=== PATIENT | female | born 2000 | race Caucasian/White ===

== ENCOUNTER 2021-09-20 17:59 | Emergency (ER) | payer OTHER, SELFPAY ==
[2021-09-20 18:12] VITALS: BP 113/73; PULSE 120; RESP 10; O2SAT 89; BMI 20.3
--- NOTE | 2021-09-20 18:15 | ED_ITS ---
HPI - Overdose General Chief Complaint: Overdose Stated Complaint: ?OD Time Seen by Provider: 09/20/21 18:15 Source: patient and family Mode of arrival: ambulatory Limitations: no limitations History of Present Illness HPI Narrative: used crack all day and smoked 2 bags of heroin prior to arrival. lost her bed at [facility] today after not making her entry time because she bailed to use. complaint: other (heroin use and smoking crack all day) Onset (ago): minute(s) (45) Timing confirmed by: family member Context: Accidental Overdose: wanted to get high Associated symptoms: other (sleepy) Treatments Prior to Arrival: none Related Data Allergies Allergy/AdvReac Type Severity Reaction Status Date / Time Penicillins [PCN] Allergy Unknown UNKNOWN Unverified 12/29/19 17:04 Review of Systems Review of Systems: Constitutional : No Fever, No Chills ENT/Mouth : No Ear Pain, No Nasal Congestion, No sore throat Eyes: No Eye Pain, No Swelling, No Redness Cardiovascular : No Chest Pain, No SOB Respiratory : No Cough, No Sputum, No Dyspnea Gastrointestinal : No Nausea, No Vomiting, No Diarrhea, No Hematochezia, No Melena Genitourinary : No Dysuria, No Urinary Frequency, No Hematuria Musculoskeletal : No Myalgias Skin : No Skin Lesions, No rash Neuro : No Weakness, No Numbness, No Dizziness, No Headache Psych : no Anxiety, no Depression, no SI/HI Heme/Lymph: No Lymphadenopathy Endocrine : No Polyuria, No Polydipsia All other systems reviewed and are negative [facility] Past Medical History Attestation statement: The following information was validated with the patient. Medical History Hepatitis C Opiate abuse, continuous Social History Social History (Updated 09/20/21 @ 18:25 by Maria C Dillard DO) Alcohol intake: current Patient Tobacco Use Status: Current everyday Tobacco user Substance Use Type: Crack/Cocaine, Heroin and Marijuana Advance Directives: No Physical Exam Vital Signs: Vital Signs: Last Vital Signs Pulse 120 H 09/20/21 18:12 Resp 10 L 09/20/21 18:12 BP 113/73 09/20/21 18:12 Pulse Ox 89 L 09/20/21 18:12 O2 Del Method 09/20/21 18:12 BMI result Body Mass Index 20.3 Appearance: Somnolent but easily woken to voice. Oriented X3. No acute distress. Eyes: pinpoint pupils ENT: Pharynx normal. Neck: Normal inspection. Neck supple. CVS: tachycardic heart rate and rhythm. Pulses normal. Respiratory: No respiratory distress. Breath sounds normal. Improved to 97% 2L NC Abdomen: Soft and non-tender. Skin: Skin warm and dry. Normal skin color. Normal skin turgor. Extremities: No lower extremity edema. Neuro: Oriented X 3. No motor deficit. No sensory deficit. Course Course Course Narrative: Physician observation started at 732pm. Patient placed in physician observation because the patient needed more time for placement at detox per CARE team. [facility] likely has bed in AM. At the time observation was started the patient's vitals were stable, patient is alert and oriented but slightly somnolent O2 sats improved, Neuro: nonfocal, CV RRR, Lungs clear Physician observation ended at 906pm. Patient does not want to wait in ED for detox bed in AM - VS stable, no hypoxia no need for narcan she is 21 years old and refuses to stay in ED will order narcan to go home with no SI, plans to go to [facility] in AM. NAD, lungs clear, CV RRR, Abd nontender, Neuro intact. Disposition is for home. MDM - Overdose MDM Narrative Medical decision making narrative: 21 yo female with hx of opiate abuse and Hep C (no treatment yet) was going to go to [facility] today but used prior to entry and patient was too sedated for detox - she is requiring 2L NC at this time after 2 bags of heroin. Will observe and refer to recovery coaches. Lab Data Labs: Lab Results 09/20/21 Range/Units 19:06 COVID-19 (GENO) Negative (Negative) COVID-19 Clin Com See Note Discharge Plan Discharge Clinical Impression: Opiate abuse, continuous Patient Disposition: Home, Self-Care Instructions: Polysubstance Abuse (ED), Opioid Withdrawal (ED), Narcotic Withdrawal (ED), Narcotic Use Disorder (ED), Opioid Use Disorder (ED) Additional Instructions: return to ED for any worsening symptoms or concerns please go to [facility] in AM
--- NOTE | 2021-09-20 18:41 | MHC.RECOVSUP ---
? Reason for consult Recovery Support o Current location: ED06H o Identified substance use concern: Heroin - Overdose - Seeking ATS (detox) - Support ? Intervention: o Community resources provided o Harm reduction discussion ? Plan: o Patient to follow up with [facility] after discharge ? Additional information: Patient Had a bed @ [facility] at 2pm which she missed.. I called [facility] and they stated that she did have a bed but didnt show up.. and that at the moment there are no female bed.. but to call in the morning if she held over night..
[2021-09-20 19:28] LABS: COVID-19 Test Negative (Negative)
--- NOTE | 2021-09-20 19:37 | MHC.CARE ---
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 Plan is for pt to stay in the ED overnight and go to [facility] in the morning for detox.
[2021-09-20 21:09] VITALS: PULSE 92; RESP 18; O2SAT 99
[2021-09-20] MEDS: Naloxone HCl Nasal TAKE HOME 4 MG SPRAY NOSTRILALT (21:14)
== END 2021-09-20 21:13 | disposition home or self-care (01) ==
PROVIDERS: Emergency Provider Emergency Medicine
DX: F11.10 Opioid abuse, uncomplicated (principal); B19.20 Unspecified viral hepatitis C without hepatic coma; Z88.0 Allergy status to penicillin; Z20.822 Contact with and (suspected) exposure to COVID-19
CPT/HCPCS: 87635; 99282; 99283

== ENCOUNTER 2023-04-01 14:38 | Outpatient (AMB) | payer OTHER, SELFPAY ==
--- NOTE | 2023-04-01 14:41 | A.OFFVIS_ITS ---
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: No Allergies Penicillins [PCN] Allergy (Unknown, Unverified 04/01/23 14:50) UNKNOWN Do you need a note to return to daycare/school/sports/work: No HPI MAT Intake HPI Details Patient presents for intake and evaluation of opioid use long history of substance use and treatment (despite patient being 23 years old) Previously prescribed suboxone--last rx September 2022 Currently using 5 bags IN daily Few weeks ago was smoking cocaine as well --is not currently Started using about 2 months ago--prior to that in recovery for about a year Reports several lifetime overdoses Alcohol use disorder Currently on probation (February 06 arrested) Treatment History: -ATS at 15 for ETOH -Age 17 ATS for opiates -3 months ago ETOH [facility] Social History: -lives with her grandmother who she repo rts is supportive -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 -strong family history of addiction Health History: -hep c cleared -nexplanon implant -no children -no BH history Multivitamin and fiber only things she takes daily [facility] Medical History Hepatitis C Opiate abuse, continuous Social History (Updated 09/20/21 @ 18:25 by Kristy Dillard DO) Alcohol intake: current Patient Tobacco Use Status: Current everyday Tobacco user Substance Use Type: Crack/Cocaine, Heroin and Marijuana Review of Systems Const Reports as per HPI and Reports no additional complaints Physical Exam Vital Signs: Last Vital Signs Pulse 95 04/01/23 14:47 BP 110/78 04/01/23 14:47 Pulse Ox 96 04/01/23 14:47 Oxygen Delivery Method Room Air 04/01/23 14:47 Const General: cooperative, alert and awake Nutritional Appearance: thin Orientation/consciousness: patient oriented x3 Skin General skin exam: no rashes or lesions noted Neuro General: patient oriented x3 Psych Appearance: well kempt Speech and movement: Clear speech present Affect: normal affect Attitude: cooperative Thought process: Circumstantial thought process present Thought content: Normal thought content present Insight: Fair insight present (Psych) Judgement: Fair judgement present (Psych) Results AMB 14 Panel Urine Drug Screen Urine Marijuana (THC) Negative Last Edit by Susana Turcios CMA on 04/01/23 15:38 Urine Cocaine Positive Last Edit by Susana Turcios CMA on 04/01/23 15:38 Urine Morphine Positive Last Edit by Susana Turcios CMA on 04/01/23 15:38 Urine Methamphetamine Negative Last Edit by Susana Turcios CMA on 04/01/23 15:38 Urine Amphetamine Negative Last Edit by Susana Turcios CMA on 04/01/23 15:3 8 Urine Benzodiazepine Negative Last Edit by Susana Turcios CMA on 04/01/23 15:38 Urine Barbiturates Negative Last Edit by Susana Turcios CMA on 04/01/23 15: 38 Urine Methadone Negative Last Edit by Susana Turcios CMA on 04/01/23 15:38 Urine Buprenorphine Negative Last Edit by Susana Turcios CMA on 04/01/23 15 :38 Urine Tricyclic Antidepressant Negative Last Edit by Susana Turcios CMA on 04/01/23 15:38 Urine MDMA Negative Last Edit by Susana Turcios CMA on 04/01/23 15:38 Urine Oxycodone Negative Last Edit by Susana Turcios CMA on 04/01/23 15:38 Urine Phencyclidine Negative Last Edit by Susana Turcios CMA on 04/01/23 15 :38 Urine Propoxyphene Negative Last Edit by Susana Turcios CMA on 04/01/23 15: 38 Results Reviewed Results Reviewed: Laboratory Last Values POC Urine Buprenorphine Negative 04/01/23 15:34 POC Urine Morphine Positive 04/01/23 15:34 POC Urine Oxycodone Negative 04/01/23 15:34 POC Urine Methadone Negative 04/01/23 15:34 POC Urine Propoxyphene Negative 04/01/23 15:34 POC Urine Barbiturates Negative 04/01/23 15:34 POC U Tricyclic Antidpr Negative 04/01/23 15:34 POC Urine PCP Negative 04/01/23 15:34 POC Ur Amphetamines Negative 04/01/23 15:34 POC Ur Methamphetamine Negative 04/01/23 15:34 POC Urine MDMA Negative 04/01/23 15:34 POC Ur Benzodiazepine Negative 04/01/23 15:34 POC Urine Cocaine Positive 04/01/23 15:34 POC Ur Marijuana (THC) Negative 04/01/23 15:34 Assessment & Plan Assessment & Plan (1) Opioid use disorder, severe, dependence: Code(s): F11.20 - Opioid dependence, uncomplicated Plan: * Suboxone 12mg BID--patient familiar with how to start medication * overdose prevention discussion--patient very knowledgeable and actually informs ppl, including her grandmother, when she is going to use so they can check on her * does not need additional narcan at this time (2) Alcohol use disorder, severe, dependence: Code(s): F10.20 - Alcohol dependence, uncomplicated Plan: * risk reduction discussion Orders: Orders AMB 14 Panel Urine Drug Screen 04/01/23 Z51.81 - Encounter for therapeutic drug level monitoring Medications: New 2 buprenorphine-naloxone 12-3 mg (Suboxone) 1 film sublingual BID 30 ea 0RF Coding Level of Care Code New Pt Level 4 (92354) Diagnoses Opioid use disorder, severe, dependence F11.20 Alcohol use disorder, severe, dependence F10.20
[2023-04-01 14:47] VITALS: BP 110/78; PULSE 95; O2SAT 96
== END 2023-04-01 15:34 | disposition home or self-care (01) ==
PROVIDERS: Visit Provider Nurse Practitioner Psychiatric/Mental Health
DX: F11.20 Opioid dependence, uncomplicated (principal); F10.20 Alcohol dependence, uncomplicated
CPT/HCPCS: 99204

== ENCOUNTER → 2023-04-01 14:38 | Outpatient (BNVA) | payer OTHER, SELFPAY | PROVIDERS: Visit Provider Nurse Practitioner Psychiatric/Mental Health | DX: F11.20 Opioid dependence, uncomplicated (principal); F10.20 Alcohol dependence, uncomplicated | CPT/HCPCS: 80305; 99202 ==

== ENCOUNTER 2023-05-14 11:25 | Outpatient (AMB) | payer OTHER, SELFPAY ==
--- NOTE | 2023-05-14 11:28 | A.OFFVISCC_ITS ---
Intake Intake Visit Reasons: MAT Allergies Penicillins [PCN] Allergy (Unknown, Unverified 04/01/23 14:50) UNKNOWN HPI MAT HPI Details Patient presents for MAT follow up She was last seen in March and re-started on suboxone She reports she was still using at the time and found the transition difficult She reports she is having to use more and more and is up to 1 bundle daily - IN She reportsd nodding out at her job ([employer]) the other day and is scared to lose her job She also does cocaine on occasion, last use a few days ago She would like to restart her suboxone She is requesting test at this time due to missed menstrual periods [facility] Medical History Hepatitis C Opiate abuse, continuous Social History (Updated 09/20/21 @ 18:25 by Kristy Dillard DO) Alcohol intake: current Patient Tobacco Use Status: Current everyday Tobacco user Substance Use Type: Crack/Cocaine, Heroin and Marijuana Review of Systems Const Reports as per HPI Physical Exam Const General: cooperative and no acute distress Nutritional Appearance: thin Resp Effort & Inspection: normal respiratory effort Psych Appearance: grossly normal and well kempt Mental Status: mental status grossly normal Speech and movement: Normal speech and movement present Affect: normal affect Results AMB Test Urine AMB Test Urine Negative Last Edit by Luz Maria Langston NP on 14:01 Assessment & Plan Assessment & Plan (1) Opioid use disorder, severe, dependence: Code(s): F11.20 - Opioid dependence, uncomplicated Plan: -Plan to restart suboxone with a microdose taper to minimize withdrawal symptoms -Comfort medications sent to pharmacy -Written directions for microdose induction provided to patient -[facility] pat reviewed -Gave patient opportunity to ask questions, she has verbalized understanding of induction instructions -Follow up 1 week -Instructed to call if need sooner appointment, or with any questions Orders: Orders AMB HCG Urine Test Today F11.20 - Opioid dependence, uncomplicated Medications: New buprenorphine-naloxone 2-[address] 1 strip/tab under (each) side of tongue 1 film buccal DAILY 10 ea 0RF ondansetron 4 mg PO Q8H PRN 30 tabs 0RF nausea and vomiting buprenorphine-naloxone 8-2 mg 1 film buccal DAILY 4 ea 0RF dicyclomine 20 mg PO TID PRN 30 tabs 0RF abdominal pain Coding Level of Care Code Est Pt Level 3 (50239) Diagnoses Opioid use disorder, severe, dependence F11.20
== END 2023-05-14 11:56 | disposition home or self-care (01) ==
PROVIDERS: Visit Provider Nurse Practitioner Family
DX: F11.20 Opioid dependence, uncomplicated (principal)
CPT/HCPCS: 99214

== ENCOUNTER → 2023-05-14 11:25 | Outpatient (BNVA) | payer OTHER, SELFPAY | PROVIDERS: Visit Provider Nurse Practitioner Family | DX: F11.20 Opioid dependence, uncomplicated (principal) | CPT/HCPCS: 81025; 99212 ==

== ENCOUNTER 2023-05-28 13:02 | Outpatient (AMB) | payer OTHER, SELFPAY ==
--- NOTE | 2023-05-28 13:10 | A.OFFVISCC_ITS ---
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 Required: No Allergies Penicillins [PCN] Allergy (Unknown, Unverified 05/28/23 13:12) UNKNOWN Do you need a note to return to daycare/school/sports/work: No HPI mat visit HPI Details Patient presents for [facility] treatment and follow up She reports it has been 8 days since she transitioned to suboxone She was cleaning her room on Thursday, found a bag and used it IN She reports she got nothing out of it and felt regretful She is unsure what dose she has been taking because she still had films from March She has been taking a flim or part of a film twice a day, a few of the days she had to take a dose midday because she could not make it to the evening dose due to emergence of withdrawal symptoms She reports she used to participate in binge drinking patterns of ETOH use, she states that she has only had a couple of drinks in the last 1.5 weeks, feels as though the suboxone is helpful with reducing her desire to drink. She denies withdrawal symptoms, no visible tremor noted [facility] Medical History Hepatitis C Opiate abuse, continuous Social History (Updated 09/20/21 @ 18:25 by Kristy Dillard DO) Alcohol intake: current Patient Tobacco Use Status: Current everyday Tobacco user Substance Use Type: Crack/Cocaine, Heroin and Marijuana Review of Systems Const Reports as per HPI Physical Exam Vital Signs: Last Vital Signs Pulse 90 05/28/23 13:11 BP 118/70 05/28/23 13:11 Pulse Ox 98 05/28/23 13:11 Oxygen Delivery Method Room Air 05/28/23 13:11 BMI result Body Mass Index 20.1 Const General: cooperative and no acute distress Resp Effort & Inspection: normal respiratory effort and able to speak in complete sentences Skin General skin exam: no rashes or lesions noted Psych Appearance: grossly normal Mental Status: mental status grossly normal Speech and movement: Pressured speech present Affect: Animated affect present Attitude: cooperative Thought process: Normal thought process present Assessment & Plan Assessment & Plan (1) Opioid use disorder, severe, dependence: Code(s): F11.20 - Opioid dependence, uncomplicated Plan: -Discussed with patient 8mg bid dosing with the 4mg midday if she needs it, if she finds she is able to sustain at 8mg bid, will d/c 4mg at next visit -Relapse prevention discussed -Follow up 1 week (2) Alcohol use disorder, severe, dependence: Code(s): F10.20 - Alcohol dependence, uncomplicated Plan: -Harm reduction discussed -Withdrawal education provided Medications: Changed From buprenorphine-naloxone 8-2 mg 1 film buccal DAILY 24 ea 0RF To buprenorphine-naloxone 8-2 mg 1 film buccal BID 14 ea 0RF Refilled buprenorphine-naloxone 4-[address] 1 strip/tab under (each) side of tongue 1 film buccal Q24H 7 ea 0RF Coding Level of Care Code Est Pt Level 3 (42956) Diagnoses Opioid use disorder, severe, dependence F11.20 Alcohol use disorder, severe, dependence F10.20
[2023-05-28 13:11] VITALS: BP 118/70; PULSE 90; O2SAT 98; BMI 20.1
== END 2023-05-28 13:36 | disposition home or self-care (01) ==
PROVIDERS: Visit Provider Nurse Practitioner Family
DX: F11.20 Opioid dependence, uncomplicated (principal); F10.20 Alcohol dependence, uncomplicated
CPT/HCPCS: 99213

== ENCOUNTER → 2023-05-28 13:02 | Outpatient (BNVA) | payer OTHER, SELFPAY | PROVIDERS: Visit Provider Nurse Practitioner Family | DX: F11.20 Opioid dependence, uncomplicated (principal); F10.20 Alcohol dependence, uncomplicated | CPT/HCPCS: 99212 ==

== ENCOUNTER 2023-12-16 10:09 | Outpatient (AMB) | payer OTHER, SELFPAY ==
--- NOTE | 2023-12-16 10:15 | AM.OFFWIN_ITS ---
Intake Vital Signs 12/16/23 10:20 Height 5 ft 4 in Weight 122 lb 4 oz BMI 21.0 BP 110/68 Blood Pressure Location Lt brachial Position Sitting Respiration 14 Pulse 63 Pulse Source Pulse Oximeter Pulse Oximetry (%) 99 Oxygen Delivery Method Room Air Intake Visit Reasons: est/ poison samm legs/arms/ankles Intake Note: Patient has poison samm on left leg and right arm, left wrist 4 days ago and will like refills on her medications. Patient Tobacco Use Status: Current everyday Tobacco user Allergies No Known Allergies Allergy (Verified 12/16/23 10:29) Medication List - Last Reconciled 12/16/23 by Jennifer Ruelas, RECEIVABLES SPECIALIST-BC buprenorphine-naloxone 4-1 mg 1 film buccal Q24H buprenorphine-naloxone 8-2 mg 1 film buccal BID dicyclomine 20 mg PO TID PRN ondansetron 4 mg PO Q8H PRN HPI HPI Comments History of Present Illness Details 23-year-old female with polysubstance ab use here today with complaints of poison samm and a need for medication refills. She reports that she just got out of inpatient treatment 1 week ago. She was using Nicorette lozenges 4 mg to help her quit smoking. She was supposed to see her treatment team last week, however did not have transportation. She has run out of her Nicorette lozenges and would like a refill. She states her next appointment with her outpatient treatment team is December 23 In regards to the poison samm concern, she reports that she was working out in her yd with long pants over the weekend and then developed a rash starting 1st on her left ankle. It has since spread to her right knee, right wrist and left wrist. The rash is itchy and weeping. Exam Awake alert oriented, no acute distress Speaking in full sentences Dermatitis to left ankle, right knee, right wrist, left wrist and posterior left thigh that is dry. No secondary excoriations or signs of infection. She has 1 weeping lesion to the lateral aspect of her left calf. Plan Nicorette 4 mg lozenge and sent in. Follow up with treatment team for addit ional refills Prednisone taper Advised to take the medication daily with food. If new lesions crop up while on the taper advised to return to the office as we may need to hold the taper and/or extend the taper to prevent recurrence. Advised to cover the areas to prevent spread using something like a Tegaderm. Wash linen to also help prevent spread. Continue to use the [id number] skin scrubs to help protect the rest of your skin. Do your best to avoid contact. This note is constructed using voice recognition software. While every effort has been made to ensure accuracy in crude oil driver, still errors may have been included Sometimes, these errors may affect the content or meaning of the given sentence . [facility] Medical History Hepatitis C Opiate abuse, continuous Social History (Updated 09/20/21 @ 18:25 by Kristy Dillard DO) Alcohol intake: current Patient Tobacco Use Status: Current everyday Tobacco user Substance Use Type: Crack/Cocaine, Heroin and Marijuana Physical Exam Vital Signs: Last Vital Signs Pulse 63 12/16/23 10:20 Resp 14 12/16/23 10:20 BP 110/68 12/16/23 10:20 Pulse Ox 99 12/16/23 10:20 Oxygen Delivery Method Room Air 12/16/23 10:20 BMI result Body Mass Index 21.0 Assessment & Plan Assessment & Plan (1) Tobacco dependence: Code(s): F17.200 - Nicotine dependence, unspecified, uncomplicated Plan: . (2) Poison samm dermatitis: Code(s): L23.7 - Allergic contact dermatitis due to plants, except food Plan: . Medications: New nicotine (polacrilex) (Nicorette) 4 mg buccal Q8H PRN 24 ea 0RF nicotine cravings prednisone 5 tabs x 2 days, 4 tabs x 2 days, 3 tabs x 2 days, 2 tabs x 2 days, 1 tab x 2 days and then STOP. 10 mg PO DIRECTED 10 days 30 tabs 0RF Coding Level of Care Code Est Pt Level 4 (45418) Diagnoses Tobacco dependence F17.200 Poison samm dermatitis L23.7
[2023-12-16 10:20] VITALS: BP 110/68; PULSE 63; RESP 14; O2SAT 99; BMI 21.0
== END 2023-12-16 10:41 | disposition home or self-care (01) ==
PROVIDERS: Visit Provider Nurse Practitioner Family
DX: F17.200 Nicotine dependence, unspecified, uncomplicated (principal); L23.7 Allergic contact dermatitis due to plants, except food
CPT/HCPCS: 99214